=== PATIENT | female | born 1945 | race Caucasian/White ===

== ENCOUNTER 2017-12-04 19:43 | Emergency (ER) | payer MEDICARE, OTHER ==
[2017-12-04] MEDS ORDERED: HYDROcodone/Acetaminophen 5/325 mg Tablet ONE (20:34)
--- NOTE | 2017-12-04 21:18 | RAD ---
AP PELVIS: 12/04/17 HISTORY: Falls. Pelvic pain. Hip pain. FINDINGS/IMPRESSION: There are postop changes and metallic hardware in the right proximal femur. No acute fracture or disl ocation is identified. POS: POLLO
== END 2017-12-04 22:03 | disposition home or self-care (01) ==
LOC: ERS 19:43
DX: S70.02XA Contusion of left hip, initial encounter (principal); E11.9 Type 2 diabetes mellitus without complications; E78.5 Hyperlipidemia, unspecified; I10 Essential (primary) hypertension; Z79.899 Other long term (current) drug therapy; Z79.84 Long term (current) use of oral hypoglycemic drugs; W19.XXXA Unspecified fall, initial encounter
CPT/HCPCS: 72170